=== PATIENT | female | born 1950 | race Caucasian/White ===

== ENCOUNTER 2017-09-09 15:49 | Emergency (ER) | payer MEDICARE, MEDICAID ==
[2017-09-09] MEDS ORDERED: NS 0.9% 1000 ML* 1,000 ML IV ONE (18:32)
[2017-09-09] MEDS ORDERED: Metoclopramide IV* 5 MG/ML 2 ML VIAL IV SLOW PU ONE (18:32)
[2017-09-09] MEDS ORDERED: Ketorolac INJ* 30 MG/ML 1 ML VIAL IV PUSH ONE (18:33)
[2017-09-09] MEDS ORDERED: diPHENhydraMINE IV* 50 MG/ML 1 ml VIAL (BENADRYL) IV ONE (18:34)
[2017-09-09 18:53] LABS: ABS Basophils 0 10^3/ul (0-0.2); ABS Eosinophils 0.2 10^3/ul (0-0.6); ABS Lymphocytes 2.2 10^3/ul (1.0-4.8); ABS Monocytes 0.5 10^3/ul (0-0.8); ABS Neutrophils 7.6 10^3/ul (1.5-7.7); ABS Nucleated RBC 0 10^3/ul; Eosinophil % 1.7 % (0-6); Hematocrit 40 % (35-47); Hemoglobin 13.7 g/dl (12.0-16.0); Lymphocyte % 20.5 % (25-47); Mean Corpuscular HGB Conc 34 g/dl (31-36); Mean Corpuscular Hemoglobin 28 pg (27-31); Mean Corpuscular Volume 81 fL (80-97); Mean Platelet Volume 7.5 um3 (7.4-10.4); Nucleated Red Blood Cells % 0; Platelet Count 224 10^3/ul (150-450); Red Blood Count 4.96 10^6/ul (4.00-5.40); Red Cell Distribution Width 18 % (10.5-15); White Blood Count 10.5 10^3/ul (3.5-10.8)
--- NOTE | 2017-09-09 18:59 | RAD ---
Indication: Several days of headaches. Now neck and LEFT arm pain. Comparison: April 23, 2013 MRI. Technique: Noncontrast CT vertex of skull through foramen magnum. Report: The sulci, ventricles, and basal cisterns are normal for age. Tidwell matter white matter differentiation is preserved without evidence for edema. No intra or extra axial hemorrhage, mass, or fluid collection detected. Unremarkable visualized orbital contents. Mild indolent thickening of the inner table of the frontal bone. No suspicious calvarial or skull base lesions evident. Unremarkable scalp. The limited visualized cephalad aspect of the LEFT maxillary sinus is remarkable for mucosal thickening similar to the prior exam. Clear mastoid air spaces. IMPRESSION: *Negative CT of the brain for age. *Chronic LEFT maxillary sinus disease.
[2017-09-09 19:02] LABS: INR 0.92 (0.77-1.02)
[2017-09-09 19:14] LABS: EGFR Non-African American 75.5 (>60)
--- NOTE | 2017-09-09 19:47 | ED ---
Ghanshyam Pineda Angela, scribed for Bess Clark MD on 09/09/17 at 1835 . Headache - HPI Summary HPI Summary: This pt is a 66 y/[facility] for the past 5-6 days. Pt reports today her headache radiates down the left side of neck into her left arm. Pt additionally notes photophobia, nausea. She has taken OTC medications without relief. Denies weakness, neck stiffness, chest pain, SOB. Pt states she has frequent headache and sometimes comes to the ED for pain management when OTC medications don't resolve her pain. She has been seeing a neurologist but needs a new one now because her neurologist retired. - History Of Current Complaint Chief Complaint: EDHeadache Stated Complaint: HEADACHE/PAIN IN LT SHOULDER ARM Time Seen by Provider: 09/09/17 18:23 Hx Obtained From: Patient Onset/Duration: Started days ago, Still Present Currently Pain Is: Current Pain Scale(0-10)= - 10, Severe Timing: Days Location of Headache: Diffuse Radiates to: left side of neck and left arm Aggravating Factor: Nothing Allevating Factors: Nothing Associated Signs And Symptoms: Nausea, Neck Pain - left sided, Other (Noted In Comments) - POS: photophobia. NEG: neck stiffness - Allergies/Home Medications Allergies/Adverse Reactions: Allergies Allergy/AdvReac Type Severity Reaction Status Date / Time ibuprofen Allergy Abdominal Verified 09/09/17 16:03 Pain morphine Allergy Hallucinati Verified 09/09/17 16:03 ons oxycodone Allergy Hallucinati Verified 09/09/17 16:03 ons trazodone Allergy Hallucinati Verified 09/09/17 16:03 ons PMH/Surg Hx/FS Hx/Imm Hx Endocrine/Hematology History: Reports: Hx Diabetes Cardiovascular History: Reports: Hx Angina, Hx Hypertension Denies: Hx Coronary Artery Disease, Hx Hypercholesterolemia, Hx Myocardial Infarction, Hx Pacemaker/ICD, Hx Valvular Heart Disease Respiratory History: Reports: Hx Sleep Apnea Denies: Hx Asthma, Hx Chronic Obstructive Pulmonary Disease (COPD) GI History: Reports: Hx Diverticulosis, Other GI Disorders Denies: Hx Cirrhosis, Hx Crohn's Disease, Hx Gastrointestinal Bleed, Hx Hiatal Hernia, Hx Ulcer Comment Only: Hx Gall Bladder Disease - removed History: Denies: Hx Dialysis, Hx Renal Disease Musculoskeletal History: Reports: Hx Arthritis, Hx Osteoporosis, Hx Tendonitis - possibly Sensory History: Reports: Hx Hearing Problem - low frequency hearing loss Denies: Hx Hearing Aid Neurological History: Reports: Hx Headaches Psychiatric History: Reports: Hx Anxiety, Hx Depression, Hx Panic Disorder, Hx Post Traumatic Stress Disorder, Hx Inpatient Treatment, Hx Community Mental Health Tx, Hx Suicide Attempt Denies: Hx of Violent Episodes Against Others - Cancer History Hx Chemotherapy: No Hx Radiation Therapy: No - Surgical History Surgery Procedure, Year, and Place: HYSTERECTOMY,CHOLECYSTECTOMY,ABDOMINOPLASTY , BREAST REDUCTION,C-SECT., CARPAL TUNNEL RELEASE, CARDIAC CATH.- NO STENTS, BI- LAT KNEE REPLACEMENTS, TONSILECTOMY; EAR SURG - A CHILD FOR HEARING LOSS-. PREV MRIs,. Rt FOOT - [place] Hx Anesthesia Reactions: No - Immunization History Date of Tetanus Vaccine: Up to date Date of Influenza Vaccine: Fall 2012 Infectious Disease History: No Infectious Disease History: Reports: Hx Hepatitis - Hep B 1998 Denies: Traveled Outside the [place] in Last 30 Days - Family History Known Family History: Positive: Cardiac Disease - [place]'s, CVA's - Social History Alcohol Use: None Substance Use Type: Reports: None Smoking Status (MU): Former Smoker Type: Cigarettes Amount Used/How Often: 2 cigarettes a day Have You Smoked in the Last Year: No Review of Systems Negative: Fever, Chills Positive: Photophobia Negative: Dental Pain Negative: Shortness Of Breath Positive: Nausea Positive: Headache. Negative: Weakness All Other Systems Reviewed And Are Negative: Yes Physical Exam - Summary Physical Exam Summary: VITAL SIGNS: Reviewed. GENERAL: Patient is a well-developed and nourished female who is lying comfortable in the stretcher. Patient is not in any acute respiratory distress. HEAD AND FACE: No signs of trauma. No ecchymosis, hematomas or skull depressions. No sinus tenderness. EYES: PERRLA, EOMI x 2, No injected conjunctiva, no nystagmus. EARS: Hearing grossly intact. Ear canals and tympanic membranes are within normal limits. MOUTH: Oropharynx within normal limits. NECK: Supple, trachea is midline, no adenopathy, no JVD, no carotid bruit, no c- spine tenderness, neck with full ROM. CHEST: Symmetric, no tenderness at palpation LUNGS: Clear to auscultation bilaterally. No wheezing or crackles. CVS: Regular rate and rhythm, S1 and S2 present, no murmurs or gallops appreciated. ABDOMEN: Soft, non-tender. No signs of distention. No rebound no guarding, and no masses palpated. Bowel sounds are normal. EXTREMITIES: FROM in all major joints, no edema, no cyanosis or clubbing. NEURO: Alert and oriented x 3. No acute neurological deficits. Speech is normal and follows commands. SKIN: Dry and warm Triage Information Reviewed: Yes Vital Signs On Initial Exam: Initial Vitals Temp Pulse Resp BP Pulse Ox 96.9 F 96 17 138/94 98 09/09/17 15:55 09/09/17 15:55 09/09/17 15:55 09/09/17 15:55 09/09/17 15:55 Vital Signs Reviewed: Yes - Robbie Coma Scale Best Eye Response: 4 - Spontaneous Best Motor Response: 6 - Obeys Commands Best Verbal Response: 5 - Oriented Coma Scale Total: 15 Diagnostics - Vital Signs Vital Signs Temp Pulse Resp BP Pulse Ox 09/09/17 15:55 96.9 F 96 17 138/94 98 - Laboratory Lab Results: Lab Results 09/09/17 09/09/17 09/09/17 Range/Units 18:48 18:48 18:48 WBC 10.5 (3.5-10.8) 10^3/ul RBC 4.96 (4.00-5.40) 10^6/ul Hgb 13.7 (12.0-16.0) g/dl Hct 40 (35-47) % MCV 81 (80-97) fL MCH 28 (27-31) pg MCHC 34 (31-36) g/dl RDW 18 H (10.5-15) % Plt Count 224 (150-450) 10^3/ul MPV 7.5 (7.4-10.4) um3 Neut % (Auto) 72.6 (38-83) % Lymph % (Auto) 20.5 L (25-47) % [place] % (Auto) 4.8 (0-7) % Eos % (Auto) 1.7 (0-6) % Baso % (Auto) 0.4 (0-2) % Absolute Neuts (auto) 7.6 (1.5-7.7) 10^3/ul Absolute Lymphs (auto) 2.2 (1.0-4.8) 10^3/ul Absolute Monos (auto) 0.5 (0-0.8) 10^3/ul Absolute Eos (auto) 0.2 (0-0.6) 10^3/ul Absolute Basos (auto) 0 (0-0.2) 10^3/ul Absolute Nucleated RBC 0 10^3/ul Nucleated RBC % 0 INR (Anticoag Therapy) 0.92 (0.77-1.02) APTT 30.3 (26.0-36.3) seconds Sodium 140 (135-145) mmol/L Potassium 3.7 (3.5-5.0) mmol/L Chloride 103 (101-111) mmol/L Carbon Dioxide 30 (22-32) mmol/L Anion Gap 7 (2-11) mmol/L BUN 15 (6-24) mg/dL Creatinine 0.77 (0.51-0.95) mg/dL Est GFR ( Amer) 91.3 (>60) Est GFR (Non-Af Amer) 75.5 (>60) BUN/Creatinine Ratio 19.5 (8-20) Glucose 184 H (70-100) mg/dL Calcium 9.8 (8.6-10.3) mg/dL Total Bilirubin 0.60 (0.2-1.0) mg/dL AST 14 (13-39) U/L ALT 19 (7-52) U/L Alkaline Phosphatase 85 (34-104) U/L Total Protein 7.0 (6.4-8.9) g/dL Albumin 3.9 (3.2-5.2) g/dL Globulin 3.1 (2-4) g/dL Albumin/Globulin Ratio 1.3 (1-3) Result Diagrams: 09/09/17 18:48 09/09/17 18:48 Lab Statement: Any lab studies that have been ordered have been reviewed, and results considered in the medical decision making process. - CT Brain CT CT Interpretation: No Acute Changes - *Negative CT of the brain for age. * Chronic LEFT maxillary sinus disease. ED physician reviewed this report. CT Interpretation Completed By: Radiologist Re-Evaluation - Re-Evaluation First Eval Re-Evaluation Time: 19:32 Change: Improved Comment: Pt is feeling better, will be discharged. Headache Course/Dx - Course Assessment/Plan: Pt is a 66 y/o female who presents with headache for the past 5 -6 days. Pt reports today her headache radiates down the left side of neck into her left arm. Pt additionally notes photophobia, nausea. She has taken OTC medications without relief. Denies weakness, neck stiffness, chest pain, SOB. Brain CT reveals no acute findings. Blood work was essentially normal . In the ED course the pt was given IV fluids, Benadryl, Toradol, Reglan which improved symptoms. On evaluation, pts symptoms have improved and she will be D/C to home with Dx of headache , possible migraine to follow up with her PCP. She understands and agrees. Allergies noted. - Diagnoses Provider Diagnoses: Headache Discharge - Sign-Out/Discharge Documenting (check all that apply): Discharge/Admit/Transfer - Discharge - Discharge Plan Condition: Stable Disposition: HOME Patient Education Materials: Migraine Headache (ED) Referrals: Gerald Palumbo MD [Primary Care Provider] - 3 Days Additional Instructions: RETURN TO ED FOR ANY NEW OR WORSENING SYMPTOMS. - Billing Disposition and Condition Condition: STABLE Disposition: Home The documentation as recorded by the Ghanshyam bales Angela accurately reflects the service I personally performed and the decisions made by me, Bess Clark MD.
[2017-09-09 20:18] VITALS: BP 141/70
== END 2017-09-09 20:10 | disposition home or self-care (01) ==
LOC: ED 15:49
DX: R51 Headache (principal); J32.0 Chronic maxillary sinusitis; Z87.891 Personal history of nicotine dependence; Z88.5 Allergy status to narcotic agent; Z88.8 Allergy status to other drugs, medicaments and biological substances
CPT/HCPCS: 36415; 70450; 80053; 85025; 85610; 85730; 96374; 96375; 99283; J1200; J1885; J2765

== ENCOUNTER 2017-10-10 12:44 | Emergency (ER) | payer MEDICARE, MEDICAID ==
[2017-10-10] MEDS ORDERED: NS 0.9% 1000 ML* 1,000 ML IV ONE (13:31)
[2017-10-10 14:07] LABS: ABS Basophils 0 10^3/ul (0-0.2); ABS Eosinophils 0.1 10^3/ul (0-0.6); ABS Lymphocytes 1.4 10^3/ul (1.0-4.8); ABS Monocytes 0.4 10^3/ul (0-0.8); ABS Neutrophils 5.7 10^3/ul (1.5-7.7); ABS Nucleated RBC 0 10^3/ul; Eosinophil % 1.1 % (0-6); Hematocrit 37 % (35-47); Hemoglobin 12.5 g/dl (12.0-16.0); Lymphocyte % 18.6 % (25-47); Mean Corpuscular HGB Conc 33 g/dl (31-36); Mean Corpuscular Hemoglobin 27 pg (27-31); Mean Corpuscular Volume 82 fL (80-97); Mean Platelet Volume 7.3 um3 (7.4-10.4); Nucleated Red Blood Cells % 0; Platelet Count 192 10^3/ul (150-450); Red Blood Count 4.59 10^6/ul (4.00-5.40); Red Cell Distribution Width 18 % (10.5-15); White Blood Count 7.6 10^3/ul (3.5-10.8)
[2017-10-10 14:22] LABS: INR 0.95 (0.77-1.02)
--- NOTE | 2017-10-10 14:33 | RAD ---
INDICATION: Left flank abdominal pain. COMPARISON: Comparison is made with a prior CT of the abdomen and pelvis from January 17, 2017. Correlation is also made with prior CT from November 09, 2013. TECHNIQUE: A CT scan of the abdomen and pelvis was performed without intravenous and without oral contrast. Contiguous axial sections were obtained from the lung bases through the symphysis pubis. Images were reconstructed in the coronal and sagittal planes. FINDINGS: The lung bases are clear. No pleural effusion is present. The liver is moderately enlarged and decreased in attenuation consistent with fatty infiltration. No significant focal abnormality seen on this noncontrast study. The patient is status post cholecystectomy. The spleen is upper limits of normal in size without focal abnormality. The pancreas appears to be within normal limits. There is a 1.0 cm left adrenal nodule which is unchanged from prior studies and therefore most consistent with a benign adenoma. The kidneys are normal in size. No renal calculi or hydronephrosis is seen. No ureteral or bladder calculi are appreciated. The aorta is normal in caliber without significant calcific plaque. No significant enlarged retroperitoneal lymph nodes are seen. The stomach, small and large bowel appear nondistended. The appendix is within normal limits. There are scattered diverticuli within the colon which are [id number] in degree in the descending and sigmoid colon. There is no evidence for diverticulitis or colitis. The patient is status post hysterectomy. No free intraperitoneal air or fluid is seen. No significant focal osseous abnormality is seen. IMPRESSION: 1. NO EVIDENCE FOR ACUTE FINDING OR CAUSE FOR THE PATIENT'S FLANK PAIN IS SEEN. 2. HEPATOMEGALY AND HEPATIC STEATOSIS. 3. STATUS POST CHOLECYSTECTOMY AND HYSTERECTOMY.
[2017-10-10 15:41] LABS: Urine Appearance Clear; Urine Blood Negative (Negative); Urine Color Straw; Urine Ketones Negative (Negative); Urine Protein Negative (Negative); Urine Specific Gravity 1.006 (1.010-1.030); Urine Urobilinogen Negative (Negative)
[2017-10-10] MEDS ORDERED: Acetaminophen Codeine #4 (300 mg/60 mg) (NF) TAB PO PRN (16:01)
--- NOTE | 2017-10-10 16:03 | ED ---
Back Pain - HPI Summary HPI Summary: This is nii Elder documenting for Dr. Amadou White MD. Pt is a 66 y/o F who presents to ED c/o left flank pain. The pain began last night around 22:00 and has been constant. She rates the pain as a 10/10 in severity. Notes constipation and frequent urination. Denies CP, SOB, and hematuria. - History of Current Complaint Chief Complaint: EDFlankPain Stated Complaint: BACK PAIN Time Seen by Provider: 10/10/17 13:17 Hx Obtained From: Patient Onset/Duration: Lasting Hours, Still Present Onset/Duration: Started Hours Ago Timing: Constant Severity Currently: Severe Pain Intensity: 10 Pain Scale Used: 0-10 Numeric Associated Signs And Symptoms: Positive: Flank Pain, Other - Constipation, frequent urination. NEGATIVE: CP, SOB, hematuria - Allergies/Home Medications Allergies/Adverse Reactions: Allergies Allergy/AdvReac Type Severity Reaction Status Date / Time ibuprofen Allergy Abdominal Verified 10/10/17 12:51 Pain morphine Allergy Hallucinati Verified 10/10/17 12:51 ons oxycodone Allergy Hallucinati Verified 10/10/17 12:51 ons trazodone Allergy Hallucinati Verified 10/10/17 12:51 ons PMH/Surg Hx/FS Hx/Imm Hx Endocrine/Hematology History: Reports: Hx Diabetes Cardiovascular History: Reports: Hx Angina, Hx Hypertension Denies: Hx Coronary Artery Disease, Hx Hypercholesterolemia, Hx Myocardial Infarction, Hx Pacemaker/ICD, Hx Valvular Heart Disease Respiratory History: Reports: Hx Sleep Apnea Denies: Hx Asthma, Hx Chronic Obstructive Pulmonary Disease (COPD) GI History: Reports: Hx Diverticulosis, Other GI Disorders Denies: Hx Cirrhosis, Hx Crohn's Disease, Hx Gastrointestinal Bleed, Hx Hiatal Hernia, Hx Ulcer Comment Only: Hx Gall Bladder Disease - removed History: Denies: Hx Dialysis, Hx Renal Disease Musculoskeletal History: Reports: Hx Arthritis, Hx Osteoporosis, Hx Tendonitis - possibly Sensory History: Reports: Hx Hearing Problem - low frequency hearing loss Denies: Hx Hearing Aid Neurological History: Reports: Hx Headaches Psychiatric History: Reports: Hx Anxiety, Hx Depression, Hx Panic Disorder, Hx Post Traumatic Stress Disorder, Hx Inpatient Treatment, Hx Community Mental Health Tx, Hx Suicide Attempt Denies: Hx of Violent Episodes Against Others - Cancer History Hx Chemotherapy: No Hx Radiation Therapy: No - Surgical History Surgery Procedure, Year, and Place: HYSTERECTOMY,CHOLECYSTECTOMY,ABDOMINOPLASTY , BREAST REDUCTION,C-SECT., CARPAL TUNNEL RELEASE, CARDIAC CATH.- NO STENTS, BI- LAT KNEE REPLACEMENTS, TONSILECTOMY; EAR SURG - A CHILD FOR HEARING LOSS-. PREV MRIs,. Rt FOOT - PANTER[place] Hx Anesthesia Reactions: No - Immunization History Date of Tetanus Vaccine: Up to date Date of Influenza Vaccine: Fall 2012 Immunizations Up to Date: Yes Infectious Disease History: No Infectious Disease History: Reports: Hx Hepatitis - Hep B 1998 Denies: Traveled Outside the [place] in Last 30 Days - Family History Known Family History: Positive: Cardiac Disease - [place]'s, CVA's - Social History Alcohol Use: None Substance Use Type: Reports: None Smoking Status (MU): Former Smoker Type: Cigarettes Amount Used/How Often: 2 cigarettes a day Have You Smoked in the Last Year: No Review of Systems Negative: Chest Pain Negative: Shortness Of Breath Positive: Other - constipation Positive: frequency, flank pain - left. Negative: hematuria All Other Systems Reviewed And Are Negative: Yes Physical Exam - Summary Physical Exam Summary: Appearance: Well appearing, no pain distress Skin: warm, dry, reflects adequate perfusion Head/face: normal Eyes: EOMI, RODGER ENT: normal Neck: supple, non-tender Respiratory: CTA, breath sounds present Cardiovascular: RRR, pulses symmetrical Abdomen: tenderness in left flank, soft Bowel: present Musculoskeletal: normal, strength/ROM intact Neuro: normal, sensory motor intact, A&Ox3 Triage Information Reviewed: Yes Vital Signs On Initial Exam: Initial Vitals Temp Pulse Resp BP Pulse Ox 96.7 F 108 22 139/79 98 10/10/17 12:49 10/10/17 12:49 10/10/17 12:49 10/10/17 12:49 10/10/17 12:49 Vital Signs Reviewed: Yes Diagnostics - Vital Signs Vital Signs Temp Pulse Resp BP Pulse Ox 10/10/17 12:49 96.7 F 108 22 139/79 98 - Laboratory Lab Results: Lab Results 10/10/17 10/10/17 10/10/17 Range/Units 13:36 13:36 13:36 WBC 7.6 (3.5-10.8) 10^3/ul RBC 4.59 (4.00-5.40) 10^6/ul Hgb 12.5 (12.0-16.0) g/dl Hct 37 (35-47) % MCV 82 (80-97) fL MCH 27 (27-31) pg MCHC 33 (31-36) g/dl RDW 18 H (10.5-15) % Plt Count 192 (150-450) 10^3/ul MPV 7.3 L (7.4-10.4) um3 Neut % (Auto) 74.6 (38-83) % Lymph % (Auto) 18.6 L (25-47) % [place] % (Auto) 5.4 (0-7) % Eos % (Auto) 1.1 (0-6) % Baso % (Auto) 0.3 (0-2) % Absolute Neuts (auto) 5.7 (1.5-7.7) 10^3/ul Absolute Lymphs (auto) 1.4 (1.0-4.8) 10^3/ul Absolute Monos (auto) 0.4 (0-0.8) 10^3/ul Absolute Eos (auto) 0.1 (0-0.6) 10^3/ul Absolute Basos (auto) 0 (0-0.2) 10^3/ul Absolute Nucleated RBC 0 10^3/ul Nucleated RBC % 0 INR (Anticoag Therapy) 0.95 (0.77-1.02) APTT 32.2 (26.0-36.3) seconds Sodium 139 (135-145) mmol/L Potassium 3.8 (3.5-5.0) mmol/L Chloride 106 (101-111) mmol/L Carbon Dioxide 24 (22-32) mmol/L Anion Gap 9 (2-11) mmol/L BUN 9 (6-24) mg/dL Creatinine 0.56 (0.51-0.95) mg/dL Est GFR ( Amer) 131.9 (>60) Est GFR (Non-Af Amer) 109.0 (>60) BUN/Creatinine Ratio 16.1 (8-20) Glucose 162 H (70-100) mg/dL Calcium 9.3 (8.6-10.3) mg/dL Total Bilirubin 0.90 (0.2-1.0) mg/dL AST 12 L (13-39) U/L ALT 14 (7-52) U/L Alkaline Phosphatase 72 (34-104) U/L Troponin I 0.00 (<0.04) ng/mL Total Protein 6.4 (6.4-8.9) g/dL Albumin 3.7 (3.2-5.2) g/dL Globulin 2.7 (2-4) g/dL Albumin/Globulin Ratio 1.4 (1-3) Lipase 26 (11.0-82.0) U/L Urine Color Urine Appearance Urine pH (5-9) Ur Specific [place] (1.010-1.030) Urine Protein (Negative) Urine Ketones (Negative) Urine Blood (Negative) Urine Nitrate (Negative) Urine Bilirubin (Negative) Urine Urobilinogen (Negative) Ur Leukocyte Esterase (Negative) Urine Glucose (Negative) 10/10/17 Range/Units 15:20 WBC (3.5-10.8) 10^3/ul RBC (4.00-5.40) 10^6/ul Hgb (12.0-16.0) g/dl Hct (35-47) % MCV (80-97) fL MCH (27-31) pg MCHC (31-36) g/dl RDW (10.5-15) % Plt Count (150-450) 10^3/ul MPV (7.4-10.4) um3 Neut % (Auto) (38-83) % Lymph % (Auto) (25-47) % [place] % (Auto) (0-7) % Eos % (Auto) (0-6) % Baso % (Auto) (0-2) % Absolute Neuts (auto) (1.5-7.7) 10^3/ul Absolute Lymphs (auto) (1.0-4.8) 10^3/ul Absolute Monos (auto) (0-0.8) 10^3/ul Absolute Eos (auto) (0-0.6) 10^3/ul Absolute Basos (auto) (0-0.2) 10^3/ul Absolute Nucleated RBC 10^3/ul Nucleated RBC % INR (Anticoag Therapy) (0.77-1.02) APTT (26.0-36.3) seconds Sodium (135-145) mmol/L Potassium (3.5-5.0) mmol/L Chloride (101-111) mmol/L Carbon Dioxide (22-32) mmol/L Anion Gap (2-11) mmol/L BUN (6-24) mg/dL Creatinine (0.51-0.95) mg/dL Est GFR ( Amer) (>60) Est GFR (Non-Af Amer) (>60) BUN/Creatinine Ratio (8-20) Glucose (70-100) mg/dL Calcium (8.6-10.3) mg/dL Total Bilirubin (0.2-1.0) mg/dL AST (13-39) U/L ALT (7-52) U/L Alkaline Phosphatase (34-104) U/L Troponin I (<0.04) ng/mL Total Protein (6.4-8.9) g/dL Albumin (3.2-5.2) g/dL Globulin (2-4) g/dL Albumin/Globulin Ratio (1-3) Lipase (11.0-82.0) U/L Urine Color Straw Urine Appearance Clear Urine pH 7.0 (5-9) Ur Specific [place] 1.006 L (1.010-1.030) Urine Protein Negative (Negative) Urine Ketones Negative (Negative) Urine Blood Negative (Negative) Urine Nitrate Negative (Negative) Urine Bilirubin Negative (Negative) Urine Urobilinogen Negative (Negative) Ur Leukocyte Esterase Negative (Negative) Urine Glucose Negative (Negative) Result Diagrams: 10/10/17 13:36 10/10/17 13:36 Lab Statement: Any lab studies that have been ordered have been reviewed, and results considered in the medical decision making process. - CT Abd/Pel CT CT Interpretation Completed By: Radiologist - 13:31. IMPRESSION: 1. NO EVIDENCE FOR ACUTE FINDING OR CAUSE FOR THE PATIENT'S FLANK PAIN IS SEEN. 2. HEPATOMEGALY AND HEPATIC STEATOSIS. 3. STATUS POST CHOLECYSTECTOMY AND HYSTERECTOMY. ED Physician reviewed this report. Re-Evaluation - Re-Evaluation First Eval Re-Evaluation Time: 04:20 - Discussed plan to d/c pt. Pt is agreeable with plan. Back Pain Course/Dx - Course Course Of Treatment: Pt is a 66 y/o F who presents to ED c/o constant left flank pain that she rates as a 10/10 in severity. Notes constipation and denies CP, SOB, and hematuria. Physical exam revealed tenderness in left flank. CT Abd/ Pel shows no evidence for acute finding or cause for the patients flank pain is seen. In ED course she was given codeine and fluids. Pt is diagnosed with abdominal pain and discharged home. Pt is agreeable with this plan. - Diagnoses Provider Diagnoses: Abdominal pain Discharge - Sign-Out/Discharge Documenting (check all that apply): Patient Departure - Discharge - Discharge Plan Condition: Stable Disposition: HOME Prescriptions: Acetaminop/Codeine 30 MG TAB* [Tylenol/Codeine 30 MG TAB*] 1 tab PO Q8H PRN #12 tab MDD 3 PRN Reason: Pain Patient Education Materials: Acute Abdominal Pain (ED) Referrals: Gerald Palumbo MD [Primary Care Provider] - 3 Days Additional Instructions: Return to ED for any new or worsening symptoms.
[2017-10-10] MEDS ORDERED: Acetaminop/Codeine 30 MG TAB* 1 TAB (300 MG/30 MG) PO PRN (16:06)
[2017-10-10] MEDS ORDERED: Codeine TAB* 30 MG PO PRN (16:06)
[2017-10-10 16:48] VITALS: BP 156/89
== END 2017-10-10 16:40 | disposition home or self-care (01) ==
LOC: ED 12:44
DX: R10.9 Unspecified abdominal pain (principal); K59.00 Constipation, unspecified; R35.0 Frequency of micturition; Z90.49 Acquired absence of other specified parts of digestive tract; Z96.653 Presence of artificial knee joint, bilateral; Z88.6 Allergy status to analgesic agent; Z88.5 Allergy status to narcotic agent; Z87.891 Personal history of nicotine dependence; R16.0 Hepatomegaly, not elsewhere classified
CPT/HCPCS: 36415; 74176; 80053; 81003; 83690; 84484; 85025; 85610; 85730; 96360; 99282; A9270-GY

== ENCOUNTER 2018-10-16 08:39 | Emergency (ER) | payer MEDICARE, MEDICAID ==
--- NOTE | 2018-10-16 09:45 | ED ---
Lower Extremity - HPI Summary HPI Summary: The patient is a 67 y/o F presenting to [facility] with a chief complaint of pain in the left knee with ecchymosis over the past few days. She reports that she fell about a week ago and is now sustained continued pain the left knee above the patella as well as some pain in the right medial thigh, which she things may be secondary to hx of bursitis. She also notes that there is a region in her mid- back that she removed a hardened scab-like object from, which she was told may be a blackhead. She additionally c/o TAYLOR. She denies any fever, chills, diaphoresis, erythema of eyes, sore throat, CP, SOB, cough, abdominal pain, N/V , dysuria, hematuria, edema, rash, or dizziness. She rates her pain 8/10 in severity. Previous medication includes Flexeril, but she is no longer taking it. She has used Extra Strength Tylenol, but she was told she cannot use Ibuprofen due to [place] use for bipolar disorder. She states that she could be in a manic state at this time but feels like her mental health has been stable lately. PMHX of DM, angina, HTN, diverticulosis, arthritis, osteoporosis, tendonitis, TAYLOR, anxiety, depression, panic disorder, PTSD, cardiac cath, bilateral knee replacements. Former smoker, no EtOH, no substance use. - History of Current Complaint Chief Complaint: EDExtremityLower Stated Complaint: LT KNEE FALL INJ LOW BACK ISSUE PER PT Time Seen by Provider: 10/16/18 09:04 Hx Obtained From: Patient Mechanism Of Injury: Other - fall a week ago with lasting pain Onset of Pain: Post Accident - fall Onset/Duration: Still Present Severity Initially: Moderate Severity Currently: Moderate Pain Intensity: 8 Pain Scale Used: 0-10 Numeric Timing: Lasting Days Location: Is Discrete @ - left knee, some pain in right knee Associated Signs And Symptoms: Positive: Bruising - left knee, Knee Pain - left knee worse than right, Other - POSITIVE: TAYLOR; NEGATIVE: chills, diaphoresis, erythema of eyes, sore throat, CP, SOB, cough, abdominal pain, N/V, dysuria, hematuria, edema, rash. Negative: Fever, Dizziness, Abdominal Pain Aggravating Factor(s): Nothing Alleviating Factor(s): Other - Tylenol Able to Bear Weight: Yes - Allergies/Home Medications Allergies/Adverse Reactions: Allergies Allergy/AdvReac Type Severity Reaction Status Date / Time ibuprofen Allergy Abdominal Verified 10/16/18 08:42 Pain morphine Allergy Hallucinati Verified 10/16/18 08:42 ons oxycodone Allergy Hallucinati Verified 10/16/18 08:42 ons trazodone Allergy Hallucinati Verified 10/16/18 08:42 ons Home Medications: Home Medications Calcium Polycarbophil TAB* [Fibercon TAB*] 625 mg PO DAILY 10/16/18 [History Confirmed 10/16/18] Dexlansoprazole (NF) [Dexilant (NF)] 60 mg PO DAILY 10/16/18 [History Confirmed 10/16/18] Fluocinonide 0.05% CM (NF) [Lidex 0.05% CREAM (NF)] 1 applic TOPICAL BEDTIME 05/05 [History Confirmed 10/16/18] [place] Carbonate ER TAB* 450 mg PO BID 10/16/18 [History Confirmed 10/16/18] Multivitamins/Minerals TAB* [Theragran/minerals TAB*] 1 tab PO DAILY 10/16/18 [ History Confirmed 10/16/18] Permethrin 1% LOTION* [Nix 1% LOTION*] 1 applic TOPICAL SEE INSTRUCTIONS [History Confirmed 10/16/18] cloNIDine TAB* [Catapres 0.1 MG TAB*] 0.1 mg PO BEDTIME 10/16/18 [History Confirmed 10/16/18] PMH/Surg Hx/FS Hx/Imm Hx Endocrine/Hematology History: Reports: Hx Diabetes Cardiovascular History: Reports: Hx Angina, Hx Hypertension Denies: Hx Coronary Artery Disease, Hx Hypercholesterolemia, Hx Myocardial Infarction, Hx Pacemaker/ICD, Hx Valvular Heart Disease Respiratory History: Reports: Hx Sleep Apnea Denies: Hx Asthma, Hx Chronic Obstructive Pulmonary Disease (COPD) GI History: Reports: Hx Diverticulosis, Other GI Disorders Denies: Hx Cirrhosis, Hx Crohn's Disease, Hx Gastrointestinal Bleed, Hx Hiatal Hernia, Hx Ulcer Comment Only: Hx Gall Bladder Disease - removed History: Denies: Hx Dialysis, Hx Renal Disease Musculoskeletal History: Reports: Hx Arthritis, Hx Osteoporosis, Hx Tendonitis - possibly Sensory History: Reports: Hx Hearing Problem - low frequency hearing loss Denies: Hx Hearing Aid Neurological History: Reports: Hx Headaches Psychiatric History: Reports: Hx Anxiety, Hx Depression, Hx Panic Disorder, Hx Post Traumatic Stress Disorder, Hx Inpatient Treatment, Hx Community Mental Health Tx, Hx Bipolar Disorder, Hx Suicide Attempt Denies: Hx of Violent Episodes Against Others - Cancer History Hx Chemotherapy: No Hx Radiation Therapy: No - Surgical History Surgery Procedure, Year, and Place: HYSTERECTOMY,CHOLECYSTECTOMY,ABDOMINOPLASTY , BREAST REDUCTION,C-SECT., CARPAL TUNNEL RELEASE, CARDIAC CATH.- NO STENTS, BI- LAT KNEE REPLACEMENTS, TONSILECTOMY; EAR SURG - A CHILD FOR HEARING LOSS-. PREV MRIs,. Rt FOOT - [place] Hx Anesthesia Reactions: No - Immunization History Date of Tetanus Vaccine: Up to date Date of Influenza Vaccine: Fall 2012 Infectious Disease History: No Infectious Disease History: Reports: Hx Hepatitis - Hep B 1998 Denies: Traveled Outside the [place] in Last 30 Days - Family History Known Family History: Positive: Cardiac Disease - RI's, CVA's - Social History Alcohol Use: None Hx Substance Use: No Substance Use Type: Reports: None Hx Tobacco Use: Yes Smoking Status (MU): Former Smoker Type: Cigarettes Amount Used/How Often: 2 cigarettes a day Have You Smoked in the Last Year: No Review of Systems Negative: Fever, Chills, Skin Diaphoresis Negative: Erythema Negative: Sore Throat Negative: Chest Pain Negative: Shortness Of Breath, Cough Negative: Abdominal Pain, Vomiting, Nausea Negative: dysuria, hematuria Positive: Myalgia - pain in left knee above patella and right medial thigh. Negative: Edema Positive: Bruising - on the left knee, Other - hardened object removed from mid- back. Negative: Rash Neurological: Other - NEGATIVE: dizziness Positive: Headache All Other Systems Reviewed And Are Negative: Yes Physical Exam - Summary Physical Exam Summary: Constitutional: Well-developed, Well-nourished, Alert. (-) Distressed Skin: Small scab removed from mid-thoracic back 3mm in diameter, Left knee has some dime-sized ecchymosis along the medial and lateral aspect with yellowing of bruise over the left patella, Warm, Dry HENT: Normocephalic; Atraumatic Eyes: Conjunctiva normal Neck: Musculoskeletal ROM normal neck. (-) JVD, (-) Stridor, (-) Tracheal deviation Cardio: Rhythm regular, rate normal, Heart sounds normal; Intact distal pulses; The pedal pulses are 2+ and symmetric. Radial pulses are 2+ and symmetric. (-) Murmur Pulmonary/Chest wall: Effort normal. (-) Respiratory distress, (-) Wheezes, (-) Rales Abd: Soft, (-) tenderness, (-) Distension, (-) Guarding, (-) Rebound Musculoskeletal: FROM, no significant bony tenderness, (-) Edema Lymph: (-) Cervical adenopathy Neuro: Alert, Oriented x3 Psych: Mood and affect Normal Triage Information Reviewed: Yes Vital Signs On Initial Exam: Initial Vitals Temp Pulse Resp BP Pulse Ox 97.8 F 79 16 133/96 100 10/16/18 08:42 10/16/18 08:42 10/16/18 08:42 10/16/18 08:42 10/16/18 08:42 Vital Signs Reviewed: Yes Diagnostics - Vital Signs Vital Signs Temp Pulse Resp BP Pulse Ox 10/16/18 09:00 89 132/71 98 10/16/18 08:42 97.8 F 79 16 133/96 100 - Laboratory Result Diagrams: 10/16/18 09:47 10/16/18 09:47 Lab Statement: Any lab studies that have been ordered have been reviewed, and results considered in the medical decision making process. - Radiology L Knee XR Radiology Interpretation Completed By: Radiologist Summary of Radiographic Findings: Impression: Postsurgical changes, no evidence for acute fracture. ED physician has reviewed this radiology report. Re-Evaluation - Re-Evaluation First Eval Re-Evaluation Time: 09:40 Comment: Patient is medically clear for [facility]. Lower Extremity Course/Dx - Course Course Of Treatment: Patient is a 67 y/o F with multiple complaints but is primarily focusing on pain in the left knee with ecchymosis as well as right knee pain in the medial aspect that has continued after falling one week ago. Additionally c/o hardened scab-like skin lesion removed from mid-back and constant TAYLOR. Uses Tylenol for pain. PMHx of bipolar disorder controlled with [place]; states she could be manic now. Upon physical exam, the patient exhibits small scab removed from mid-thoracic back 3mm in diameter, left knee has some dime-sized ecchymosis along the medial and lateral aspect with yellowing of bruise over the left patella, FROM in legs, and no significant bony tenderness. Blood work is within normal limits but reveals RDW of 16, MPV of 7.0, BUN/Creatinine of 22.1, and glucose of 141. UA is negative for infection. Toxicology reveals lithium of 0.46. Left knee x-ray impression reveals postsurgical changes without evidence for fracture. Patient is medically clear for E at 0940. At 1345, Katherine Alfonso from mental health services reports that Dr. Carrion, psychiatry, feels that the patient is able to be discharged with dx of mood disorder and follow up with her outpatient community servies. She denies any SI, and her daughter does not feel like she is a threat. She is given Tylenol for TAYLOR prior to discharge. Patient agrees with discharge plan. - Diagnoses Provider Diagnoses: Mood disorder - Physician Notifications Discussed Care Of Patient With: Katherine Alfonso - mental health supervisor [employer] Time Discussed With Above Provider: 13:45 Instructed by Provider To: Other - Katherine reports that Dr. Carrion, psychiatry , feels that the patient is able to be discharged with dx of mood disorder and follow up with her outpatient community servies. She denies any SI, and her daughter does not feel like she is a threat. Discharge - Sign-Out/Discharge Documenting (check all that apply): Patient Departure - Patient will be discharged home. Patient Received Moderate/Deep Sedation with Procedure: No - Discharge Plan Condition: Stable Disposition: HOME Referrals: Gerald Palumbo MD [Primary Care Provider] - 3 Days - Billing Disposition and Condition Condition: STABLE Disposition: Home - Attestation Statements Document Initiated by Scribe: Yes Documenting Scribe: Samira Hurley Provider For Whom Myrna is Documenting (Include Credential): Dr. Sea Gutierrez MD Scribe Attestation: Samira Pineda, scribed for Dr. Sea Gutierrez MD on 10/16/18 at 1516. Status of Scribe Document: Ready
[2018-10-16 09:55] LABS: ABS Eosinophils 0.2 10^3/ul (0-0.6); ABS Lymphocytes 1.3 10^3/ul (1.0-4.8); ABS Monocytes 0.4 10^3/ul (0-0.8); ABS Neutrophils 5.3 10^3/ul (1.5-7.7); Eosinophil % 2.5 %; Hematocrit 41 % (35-47); Hemoglobin 13.7 g/dL (12.0-16.0); Lymphocyte % 18.3 %; Mean Corpuscular HGB Conc 34 g/dL (31-36); Mean Corpuscular Hemoglobin 28 pg (27-31); Mean Corpuscular Volume 84 fL (80-97); Platelet Count 203 10^3/uL (150-450); Red Blood Count 4.85 10^6 /uL (3.70-4.87); Red Cell Distribution Width 16 % (10-15); White Blood Count 7.3 10^3/uL (3.5-10.8)
[2018-10-16 10:17] LABS: Urine Appearance Cloudy; Urine Bilirubin Negative (Negative); Urine Blood Negative (Negative); Urine Color Yellow; Urine Glucose Negative (Negative); Urine Ketones Negative (Negative); Urine Nitrite Negative (Negative); Urine Protein Negative (Negative); Urine Specific Gravity 1.018 (1.010-1.030); Urine Urobilinogen Negative (Negative)
[2018-10-16 10:27] LABS: ALT 22 U/L (7-52); AST 19 U/L (13-39); Albumin 4.2 g/dL (3.2-5.2); Albumin/Globulin Ratio 1.6 (1-3); Alkaline Phosphatase 68 U/L (34-104); Anion Gap 5 mmol/L (2-11); BUN/Creatinine Ratio 22.1 (8-20); Blood Urea Nitrogen 17 mg/dL (6-24); CO2 Carbon Dioxide 30 mmol/L (22-32); Calcium 10.1 mg/dL (8.6-10.3); Chloride 105 mmol/L (101-111); EGFR Non-African American 75.2 (>60); Globulin 2.7 g/dL (2-4); Glucose 141 mg/dL (70-100); Sodium 140 mmol/L (135-145); Total Protein 6.9 g/dL (6.4-8.9)
[2018-10-16 10:29] LABS: Acetaminophen < 15 mcg/mL; Alcohol < 10 mg/dL (<10); Lithium 0.46 mmol/L (0.6-1.2); Salicylate < 2.50 mg/dL (<30)
[2018-10-16 10:33] LABS: Urine Benzodiazepine Screen None Detected (None Detect); Urine Opiates Screen None Detected (None Detect)
[2018-10-16 10:40] LABS: TSH (Thyroid Stimulating Horm) 3.09 mcIU/mL (0.34-5.60)
[2018-10-16] MEDS ORDERED: Acetaminophen TAB* 325 MG PO ONE (15:20)
[2018-10-16 15:35] VITALS: BP 129/66
== END 2018-10-16 15:33 | disposition home or self-care (01) ==
LOC: ED 08:39
DX: F39 Unspecified mood [affective] disorder (principal); E11.9 Type 2 diabetes mellitus without complications; I20.9 Angina pectoris, unspecified; I10 Essential (primary) hypertension; Z88.5 Allergy status to narcotic agent; Z88.8 Allergy status to other drugs, medicaments and biological substances; Z79.899 Other long term (current) drug therapy; Z87.891 Personal history of nicotine dependence
CPT/HCPCS: 36415; 80053; 80178; 80307; 80320; 80329; 81003; 84443; 85025; 99285; A9270-GY; G0480

== ENCOUNTER 2023-02-21 12:12 | Inpatient (IN) ==
[2023-02-21] MEDS ORDERED: Al Hydrox/Mg Hydrox/Simet LIQ 30 ML UDC PO PRN (15:00)
[2023-02-21] MEDS ORDERED: Dulaglutide (NF) 1.5 MG/0.5 ML SYRINGE SUBCUT SCH (16:00)
[2023-02-21] MEDS: Insulin GLARGINE 100 un/ml 10 ml VIAL SUBCUT SCH (21:48)
[2023-02-21] MEDS: Calcium/Vitamin D TAB 250/125 TAB PO SCH (21:58)
[2023-02-21] MEDS: Ammonium Lactate 12% 1 APPLIC TUBE TOPICAL SCH (21:58)
[2023-02-22] MEDS: Ammonium Lactate 12% 1 APPLIC TUBE TOPICAL SCH ×2 (07:58→20:59)
[2023-02-22] MEDS: Calcium/Vitamin D TAB 250/125 TAB PO SCH ×2 (07:59→20:37)
[2023-02-22] MEDS: PTO: Cariprazine 1.5 mg CAP (NF) PO SCH (07:59)
[2023-02-22] MEDS: Insulin GLARGINE 100 un/ml 10 ml VIAL SUBCUT SCH (20:51)
[2023-02-23 08:37] LABS: HDL Cholesterol 64.6 mg/dL
[2023-02-23] MEDS: PTO: Cariprazine 1.5 mg CAP (NF) PO SCH (08:47)
[2023-02-23] MEDS: Calcium/Vitamin D TAB 250/125 TAB PO SCH ×2 (08:47→21:01)
[2023-02-23] MEDS: Ammonium Lactate 12% 1 APPLIC TUBE TOPICAL SCH ×2 (08:48→21:03)
[2023-02-23] MEDS: Insulin GLARGINE 100 un/ml 10 ml VIAL SUBCUT SCH (20:59)
[2023-02-24] MEDS: Calcium/Vitamin D TAB 250/125 TAB PO SCH ×2 (08:31→20:40)
[2023-02-24] MEDS: Ammonium Lactate 12% 1 APPLIC TUBE TOPICAL SCH ×2 (08:31→20:41)
[2023-02-24] MEDS: PTO: Cariprazine 1.5 mg CAP (NF) PO SCH (08:32)
[2023-02-24] MEDS: Insulin GLARGINE 100 un/ml 10 ml VIAL SUBCUT SCH (20:39)
[2023-02-25] MEDS: Calcium/Vitamin D TAB 250/125 TAB PO SCH ×2 (08:42→20:40)
[2023-02-25] MEDS: Ammonium Lactate 12% 1 APPLIC TUBE TOPICAL SCH ×2 (08:48→22:03)
[2023-02-25] MEDS ORDERED: Carbidopa/Levodop 25/100 MG TAB PO SCH (14:00)
[2023-02-25] MEDS: Insulin GLARGINE 100 un/ml 10 ml VIAL SUBCUT SCH (20:38)
[2023-02-25] MEDS: Carbidopa/Levodop 25/100 MG TAB PO SCH (22:04)
[2023-02-26] MEDS: Carbidopa/Levodop 25/100 MG TAB PO SCH ×3 (06:56→21:54)
[2023-02-26] MEDS: Calcium/Vitamin D TAB 250/125 TAB PO SCH ×2 (08:28→20:32)
[2023-02-26] MEDS: Ammonium Lactate 12% 1 APPLIC TUBE TOPICAL SCH ×2 (08:29→20:33)
[2023-02-26] MEDS: Insulin GLARGINE 100 un/ml 10 ml VIAL SUBCUT SCH (20:33)
[2023-02-27] MEDS: Carbidopa/Levodop 25/100 MG TAB PO SCH ×2 (07:09→12:41)
[2023-02-27] MEDS: Calcium/Vitamin D TAB 250/125 TAB PO SCH (07:53)
[2023-02-27 09:00] VITALS: BP 128/69
[2023-02-27] MEDS: Ammonium Lactate 12% 1 APPLIC TUBE TOPICAL SCH (10:38)
== END 2023-02-27 13:00 | disposition home or self-care (01) | DRG 885 ==
LOC: ED 12:12 → EDHOLD 15:00 → BSU 16:06
PROVIDERS: ADMIT Student in an Organized Health Care Education/Training Program; ATTEND Student in an Organized Health Care Education/Training Program

== ENCOUNTER 2023-06-24 09:42 | Inpatient (IN) ==
[2023-06-24] MEDS ORDERED: Lactulose 30 ml UDC PO PRN (10:34)
[2023-06-24] MEDS ORDERED: Ondansetron 4 mg VIAL 2 MG/ML 2 ml VIAL IV PRN (10:34)
[2023-06-24] MEDS ORDERED: Ondansetron ODT 4 mg TAB 4 MG TAB PO PRN (10:34)
[2023-06-24] MEDS ORDERED: Magnesium Hydroxide LIQ 30 ML UDC PO PRN (10:34)
[2023-06-24] MEDS ORDERED: Vancomycin 1,000 MG in NS 0.9% 250 ml 250 ML IVPB ONE (10:49)
[2023-06-24] MEDS ORDERED: Vancomycin per Pharmacy 1 EA NOTE FOLLOW UP SCH (11:00)
[2023-06-24] MEDS: Lactated Ringers 1000 ml BAG 1,000 ML IV SCH (17:29)
[2023-06-24] MEDS: Vancomycin 1,500 MG in NS 0.9% 250 ml 250 ML IVPB ONE (17:48)
[2023-06-24] MEDS: Carbidopa/Levodop 25/100 MG TAB PO SCH (18:25)
[2023-06-24] MEDS ORDERED: Insulin GLARGINE 100 un/ml 10 ml VIAL SUBCUT SCH (21:00)
[2023-06-24] MEDS: diazePAM INJ CARPUJECT 5 MG/ML SYRINGE IV ONE (21:01)
[2023-06-24] MEDS: Insulin GLARGINE 100 un/ml 10 ml VIAL SUBCUT SCH (21:02)
[2023-06-25] MEDS: Vancomycin 1000 MG in NS 0.9% 250 ML IVPB SCH (05:06)
[2023-06-25 05:42] LABS: Calcium 8.8 mg/dL (8.6-10.3); Creatinine, Serum 0.85 mg/dL (0.51-0.95); Potassium 4.2 mmol/L (3.5-5.0); eGFR CKD-EPI 73.7 (>60)
[2023-06-25 08:49] LABS: CRP High Sensitivity 26.87 mg/L (<2.00)
[2023-06-25 09:00] LABS: ABS Basophils 0.1 10^3/uL (0.0-0.1); ABS Eosinophils 0.2 10^3/uL (0.0-0.5); ABS Lymphocytes 1.5 10^3/uL (1.0-4.8); ABS Monocytes 0.7 10^3/uL (0.0-0.9); ABS Neutrophils 4.4 10^3/uL (1.5-7.6); ABS Nucleated RBC 0.01 10^3/ul; Eosinophil % 2.6 %; Hematocrit 38.9 % (35-45); Hemoglobin 12.8 g/dL (11.5-14.3); Mean Corpuscular Hemoglobin 27.7 pg (27-33); Mean Corpuscular Volume 84.1 fL (80-97); Mean Platelet Volume 7.4 fL (7.5-11.2); Nucleated Red Blood Cells % 0.2 %/100WBC (0.0-0.8); Platelet Count 191 10^3/uL (150-450); Red Blood Count 4.63 10^6/uL (3.63-4.92); Red Cell Distribution Width 17.4 % (12-17); White Blood Count 6.8 10^3/uL (3.8-11.8)
[2023-06-25] MEDS: Vitamin THERAPEUTIC TAB PO SCH (09:48)
[2023-06-25 11:00] LABS: Erythrocyte Sed Rate 22 mm/Hr (0-29)
[2023-06-26 06:34] LABS: Calcium 9.4 mg/dL (8.6-10.3); Creatinine, Serum 0.77 mg/dL (0.51-0.95); Potassium 4.5 mmol/L (3.5-5.0); Vancomycin Trough 12.2 mcg/mL; eGFR CKD-EPI 82.9 (>60)
[2023-06-26] MEDS: Vancomycin Trough Check NOTE FOLLOW UP ONE (07:20)
[2023-06-26] MEDS: NS 0.9% 1000 ml BAG 1,000 ML IV SCH (10:43)
[2023-06-26] MEDS: diazePAM INJ CARPUJECT 5 MG/ML SYRINGE IV ONE (10:49)
[2023-06-26 12:19] LABS: High Sensitivity Troponin 1 Hr 4 pg/mL (<15)
[2023-06-26] MEDS: Iodixanol (CONTRAST) 320 MG/ML 100 ML SDV IV ONE (15:49)
[2023-06-27 07:22] LABS: Calcium 9.2 mg/dL (8.6-10.3); Creatinine, Serum 0.68 mg/dL (0.51-0.95); Potassium 4.3 mmol/L (3.5-5.0); eGFR CKD-EPI 93.6 (>60)
[2023-06-27 10:20] VITALS: BP 117/65
[2023-06-27] MEDS ORDERED: Albuterol HFA INHALER 8 gm MDI INH PRN (11:20)
[2023-06-28] MEDS ORDERED: Vancomycin Trough Check NOTE FOLLOW UP ONE (05:30)
== END 2023-06-27 14:30 | disposition home or self-care (01) | DRG 541 ==
LOC: SSU 10:34
PROVIDERS: ADMIT Orthopaedic Surgery; ATTEND Orthopaedic Surgery